=== PATIENT | male | born 1990 | race Two or more races ===

== ENCOUNTER 2020-10-30 14:10 | Emergency (ER) | payer OTHER ==
[~2020-10-30] VITALS: Ht 177.8 cm; Wt 83.9 kg
[2020-10-30] MEDS ORDERED: ACETAMINOPHEN 325 MG TAB PO ONE (14:45)
[2020-10-30 15:14] LABS: Basophils # (auto) 0.1 10 ^3/uL (0-0.2); Basophils % (auto) 0.5 % (0.0-2.0); Eosinophils # (auto) 0.4 10 ^3/uL (0-0.8); Eosinophils % (auto) 2.5 % (0.0-7.0); Hematocrit 49.1 % (41.0-53.0); Hemoglobin 17.2 g/dL (13.5-17.5); Lymphocytes # (auto) 1.3 10 ^3/uL (0.4-5.4); Lymphocytes % (auto) 7.8 % (10.0-50.0); Mean Corpuscular Hemoglobin 32.2 pg (28.0-32.0); Mean Corpuscular Volume 91.8 fL (80.0-100.0); Monocytes # (auto) 1.2 10 ^3/uL (0-1.3); Monocytes % (auto) 7.7 % (0.0-12.0); Neutrophils # (auto) 13.2 10 ^3/uL (1.6-8.6); Neutrophils % (auto) 81.5 % (37.0-80.0); Nucleated Red Blood Cells % 0.3 %; Red Blood Cells 5.35 10^6/uL (4.5-5.90); White Blood Cell 16.1 10^3/uL (4.4-10.8)
[2020-10-30 15:42] LABS: Albumin 3.5 g/dL (3.4-5.0); Calcium 8.7 mg/dL (8.5-10.1); Potassium 3.6 mmol/L (3.5-5.1)
[2020-10-30 15:45] LABS: Lactic Acid w/Reflex 3.4 mmol/L (0.4-2.0)
[2020-10-30 15:46] LABS: BUN/Creatinine Ratio 5.1; Total Protein 7.9 g/dL (6.4-8.2)
[2020-10-30 16:34] VITALS: BP 125/75
== END 2020-10-30 17:58 | disposition home or self-care (01) ==
LOC: ER 14:10
DX: J45.901 Unspecified asthma with (acute) exacerbation (principal); J02.9 Acute pharyngitis, unspecified; R73.9 Hyperglycemia, unspecified; R00.0 Tachycardia, unspecified; F17.210 Nicotine dependence, cigarettes, uncomplicated; Z20.822 Contact with and (suspected) exposure to COVID-19
CPT/HCPCS: 36415; 71045; 80053; 83605; 85025; 87040; 87070; 87426; 87880

== ENCOUNTER 2021-01-04 21:04 | Emergency (ER) | payer SELFPAY ==
[~2021-01-04] VITALS: Ht 177.8 cm; Wt 83.9 kg
[2021-01-05 00:19] VITALS: BP 126/89
== END 2021-01-05 01:21 | disposition home or self-care (01) ==
LOC: ER 21:10
DX: S02.40FA Zygomatic fracture, left side, initial encounter for closed fracture (principal); S02.85XA Fracture of orbit, unspecified, initial encounter for closed fracture; S02.19XA Other fracture of base of skull, initial encounter for closed fracture; S02.40CA Maxillary fracture, right side, initial encounter for closed fracture; S02.2XXA Fracture of nasal bones, initial encounter for closed fracture; J01.80 Other acute sinusitis; J45.909 Unspecified asthma, uncomplicated; F17.210 Nicotine dependence, cigarettes, uncomplicated; V49.49XA Driver injured in collision with other motor vehicles in traffic accident, initial encounter; Y93.89 Activity, other specified; Y92.488 Other paved roadways as the place of occurrence of the external cause; Y99.8 Other external cause status
CPT/HCPCS: 70486

== ENCOUNTER 2025-04-29 09:54 | Emergency (ER) | payer SELFPAY ==
[~2025-04-29] VITALS: Ht 177.8 cm; Wt 86.4 kg
[2025-04-29 10:03] VITALS: BP 137/97; PULSE 85; RESP 15; TEMP 96.1; O2SAT 98
--- NOTE | 2025-04-29 10:35 | ED.PDOC ---
GI ASSESSMENT HPI Comments A 34 YEAR OLD MALE PRESENTS TO THE ED WITH COMPLAINT OF PELVIC PAIN . PT STATES HE HAS HISTORY OF INGUINAL HERNIA BILATERALLY. PT STATES HE HAD SURGERY AT [facility] BUT STATES THE INGUINAL HERNIA REAPPEARED A FEW MONTHS AGO AND STATES HE WAS TOLD [facility] WOULD NOT OPERATE AGAIN UNTIL SYMPTOMS BECAME PROGRESSIVELY WORSE. PT STATES LAST SUNDAY, 5 DAYS PRIOR, HE STARTED AGAIN TO HAVE LOWER PELVIC PAIN AND CAME TODAY DUE TO EXACERBATION OF PAIN. PT STATES HE IS CURRENTLY HAVING R INGUINAL HERNIA PAIN. 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 PATIENT DENIES FEVER, CHILLS, SHORTNESS OF BREATH, CHEST PAIN, ABDOMINAL PAIN, NAUSEA, VOMITING, HEADACHE, OR OTHER COMPLAINTS. NO OTHER SYMPTOMS OR MODIFYING FACTORS AT THIS TIME. PATIENT IS ALERT, ORIENTED X 4, AND HAS STEADY GAIT. Chief Complaint: Pelvic Pain Time Seen by MD: 10:32 Reviewed Notes: Nurses Notes, Medications, Allergies Allergies: Coded Allergies: NO KNOWN ALLERGIES (Unverified , 10/30/20) Information Source: Patient Mode of Arrival: Ambulatory Brought in by: self Timing: Days Duration: Since onset Prehospital treatment: None Quality: Aching, Colicky Vomitus: None Stool: Tarry Severity: Moderate Recent: None Recent Hx of: None Pain Location: Other (GROIN REGIONS ) Associated sign and symptoms: Abdominal Pain Past Medical History PAST MEDICAL HISTORY: Asthma Past Medical History (Other): INGUINAL HERNIAS Surgical History: Denies all surgeries Surgical History (Other): RIGHT INGUINAL HERNIA Family History Family History: Reviewed,noncontributory to illness Social History Smoker: Cigarettes Alcohol: Occasionally Drugs: Denies Drug Use Lives In: Home Constitutional: denies: chills, diaphoresis, fatigue, fever, malaise, sweats, weakness, others EENTM: denies: blurred vision, double vision, ear bleeding, ear discharge, ear drainage, ear pain, ear ringing, eye pain, eye redness, hearing loss, mouth pain, mouth swelling, nasal discharge, nose bleeding, nose congestion, nose pain, photophobia, tearing, throat pain, throat swelling, voice changes, others Respiratory: denies: cough, hemoptysis, orthopnea, SOB at rest, shortness of breath, SOB with excertion, stridor, wheezing, others Cardiovascular: denies: chest pain, dizzy spells, diaphoresis, Dyspnea on exertion, edema, irregular heart beat, left arm pain, lightheadedness, palpitati ons, PND, syncope, others Gastrointestinal: reports: others (pelvic pain); denies: abdomen distended, abdominal pain, blood streaked bowels, constipated, diarrhea, dysphagia, difficulty swallowing, hematemesis, melena, nausea, poor appetite, poor fluid intake, rectal bleeding, rectal pain, vomiting Genitourinary: reports: pain (BILATERAL INGUINAL REGIONS ); denies: burning, dysuria, flank pain, frequency, hematuria, incontinence, penile discharge, penile sore, testicle pain, testicle swelling, urgency, others Neurological: denies: dizziness, fainting, headache, left sided numbness, left sided weakness, numbness, paresthesia, pre-existing deficit, right sided numbness, right sided weakness, seizure, speech problems, tingling, tremors, weakness, others Musculoskeletal: denies: back pain, gout, joint pain, joint swelling, muscle pain, muscle stiffness, neck pain, others Integumetry: denies: bruises, change in color, change in hair/nails, dryness, laceration, lesions, lumps, rash, wounds, others Allergic/Immunocompromised: denies: Difficulty Healing, Frequent Infections, Hives, Itching, others Hematologic/Lymphatic: denies: anemia, blood clots, easy bleeding, easy bruising, swollen glands, others Endocrine: denies: excessive hunger, excessive sweating, excessive thirst, excessive urination, flushing, intolerance to cold, intolerance to heat, unexplained weight gain, unexplained weight loss, others Psychiatric: denies: anxiety, bipolar disorder, depression, hopeless, panic disorder, schizophrenia, sleepless, suicidal, others All Other Systems: Reviewed and Negative Physical Exam General Appearance: No Apparent Distress, Normal HEENT: Normal ENT Inspection, PERRL/EOMI, Pharynx Normal, TMs Normal Neck: Full Range of Motion, Non-Tender, Normal, Normal Inspection Respiratory: Chest Non-Tender, Lungs Clear, No Accessory Muscle Use, No Respiratory Distress, Normal Breath Sounds Cardiovascular: No Edema, No JVD, No Murmur, No Gallop, Normal Peripheral Pulses, Regular Rate/Rhythm Breast Exam: Deferred Gastrointestinal: Hernia (BILATERAL INGUINAL HERNIA REGION, REDUCABLE, NO STRANGULATED. ), No Organomegaly, No Pulsatile Mass, Normal Bowel Sounds, Soft, Tenderness (BILATERAL INGUINAL REGION WITH REDUCABLE HERNIAS. ) Genitalia: Deferred Pelvic: Deferred Rectal: Deferred Extremities: No calf tenderness, Normal capillary refill, Normal inspection, Normal range of motion, Non-tender, No pedal edema Musculoskeletal : Apperance: Normal Neurologic: Alert, service person II-XII nml as Tested, No Motor Deficits, Normal Affect, Normal Mood, No Sensory Deficits Cerebellar Function: Normal Reflexes: Normal Skin: Dry, Normal Color, Warm Peripheral Pulses: 2+ carotid (R), 2+ carotid (L) Lymphatic: No Adenopathy Was a procedure done? Was a procedure done?: No GI differential Dx Differential Diagnosis: Appendicitis, Constipation, Hernia, UTI, Urolithiasis Other Differential Diagnosis inguinal hernia, incarcerated hernia, X-Ray, Labs, Meds, VS Vital Signs Date Time Temp Pulse Resp B/P (MAP) Pulse Ox O2 Delivery O2 Flow Rate FiO2 04/29/25 10:03 96.1 85 15 137/97 98 96.1 PATIENT: OPAL ALFORDT: [id number]: [id number] : 1990 LOC: ER ROOM / BED: / AGE / SEX: 34 / M ADM STATUS: REG ER SERVICE [id number] ORDERING PHYSICIAN: YENNIFER SCHMITZ PROCEDURE(s): ABPL - CT AB PEL WO CON-NO ORAL OR IV REASON: bilateral injuinal hernia x one year. ORDER NUMBER(s): [id number], ACCESSION NUMBER(s): [id number] EXAM: CT CT AB PEL WO CON-NO ORAL OR IV HISTORY: bilateral injuinal hernia x one year. Comparison Study: None Exam Date: 04/29/2025 10:28 AM Radiation Dose Information: CT Dose: CTDI volume is 8.47 mGy. Dose-length product is 449.01 mGy*cm Technique: Multidetector CT of the abdomen and pelvis was performed. Imaging was performed without IV contrast. Axial, coronal and sagittal multiplanar reformats were obtained from the axial data set by the technologist. Findings: Lack of intravenous contrast compromises evaluation of perfusion and for isodense lesions. Lower chest: Clear. Liver: Unremarkable Biliary system: Unremarkable Spleen: Unremarkable Pancreas: Unremarkable. Adrenals: Unremarkable. Kidneys and ureters: No hydronephrosis Bowel: No obstruction. Scattered colonic diverticula. Normal appendix. Bladder: Unremarkable Reproductive organs: No abnormal mass. Lymph nodes: Unremarkable. Peritoneum: Unremarkable Vessels: Patency not evaluated on this noncontrast study. Bones and soft tissue: No aggressive osseous lesion. small fat containing left inguinal hernia. IMPRESSION: No acute CT findings in the abdomen and pelvis. Small fat containing left inguinal hernia. ATED BY: LANDON AGUILAR MD DICTATED DATE/TIME: 04/29/251101 SIGNED BY: LANDON AGUILAR MD SIGNED DATE/TIME: 04/29/251101 CC: X-Ray, Labs, Meds, VS Comment COURSE: EXTERNAL MEDICAL RECORDS REVIEWED: [NONE] INDEPENDENT HISTORIANS: [NONE] SOCIAL DETERMINANTS OF HEALTH: [NONE] LABS ORDERED: NONE REVIEWED AND INTERPRETED RESULTS: NONE IMAGING ORDERED: CT ABDOMEN PELVIC NON-CON TREATMENTS ORDERED: PT DECLINED PAIN MEDICATION. PROCEDURES PERFORMED: NONE CRITICAL CARE TIME: NONE I HAVE DISCUSSED THE PATIENT WITH THE ATTENDING PHYSICIAN DR MARTINEZ. AND HE AGREES WITH THE PATIENT'S PLAN OF CARE AND DISPOSITION. BASED ON HISTORY OF PRESENT ILLNESS, AND PHYSICAL EXAM, PATIENT WILL BE DISCHARGED HOME. SHARED DECISION MAKING: DISCUSSED WITH PATIENT THAT THEIR WORKUP WAS NORMAL. PATIENT INSTRUCTED TO FOLLOW UP WITH PRIMARY CARE PROVIDER IN 1-2 DAYS FOR RE- EVALUATION OF SYMPTOMS. PATIENT VERBALIZES UNDERSTANDING TO RETURN TO ED FOR NEW OR WORSENING SYMPTOMS OR IF FOLLOW UP WITH PCP CANNOT BE OBTAINED. PATIENT FEELS COMFORTABLE GOING HOME AT THIS TIME. ALL QUESTIONS ADDRESSED AT TIME OF DISCHARGE. Time of 1ST Reevaluation: 11:05 Reevaluation 1ST: Improved Patient Education/Counseling: Diagnosis, Treatment, Need For Follow Up Family Education/Counseling: Diagnosis, Treatment, No Family Present Medical Screening: No EMC Exist At This Time SEPSIS Sepsis Screen Date sepsis recognized/suspect: Apr 29, 2025 Time Sepsis recognized/suspect: 1004 Recent Procedure: No On Antibiotic Therapy: No Respiratory Rate >20: No Heart Rate >90: No Temp<36 C (96.8 F) or >38.3 C: No SBP <90 or MAP <65 mmHG: No New Acute Mental Status Change: No Is the patient on CPAP, BIPAP,: No Physician Orders Ct Ab Pel Wo Con-No Oral Or Iv (04/29/25 10:21) Vital Signs Date Time Temp Pulse Resp B/P (MAP) Pulse Ox O2 Delivery O2 Flow Rate FiO2 04/29/25 10:03 96.1 85 15 137/97 98 96.1 Departure 1 Departure Time of Disposition: 11:50 Impression: Primary Impression: Left inguinal hernia Disposition: HOME / SELF CARE / HOMELESS Condition: Stable Additional Instructions: INSTRUCTIONS: FOLLOW-UP WITH PCP IN 1 TO 2 DAYS. TAKE MEDICATIONS PRESCRIBED. RETURN TO ED FOR ANY NEW OR WORSENING SYMPTOMS. Discharged With: Self Critical Care Note Critical Care Time?: No Stability Stability form required: No Heart Score Heart Score: Heart Score Response (Comments) Value History N/A 0 EKG N/A 0 Age N/A 0 Risk Factors N/A 0 Troponin N/A 0 Total 0 I personally scribed for YENNIFER SCHMITZ ([email or web address]) on 04/29/25 at 10:35. Electronically submitted by Remedios Du ([email or web address]). I personally scribed for YENNIFER SCHMITZ ([email or web address]) on 04/29/25 at 10:37. Electronically submitted by Remedios Du ([email or web address]). YENNIFER SCHMITZ Apr 29, 2025 10:35
--- NOTE | 2025-04-29 11:04 | DVH ---
EXAM: CT CT AB PEL WO CON-NO ORAL OR IV HISTORY: bilateral injuinal hernia x one year. Comparison Study: None Exam Date: 04/29/2025 10:28 AM Radiation Dose Information: CT Dose: CTDI volume is 8.47 mGy. Dose-length product is 449.01 mGy*cm Technique: Multidetector CT of the abdomen and pelvis was performed. Imaging was performed without IV contrast. Axial, coronal and sagittal multiplanar reformats were obtained from the axial data set by the technologist. Findings: Lack of intravenous contrast compromises evaluation of perfusion and for isodense lesions. Lower chest: Clear. Liver: Unremarkable Biliary system: Unremarkable Spleen: Unremarkable Pancreas: Unremarkable. Adrenals: Unremarkable. Kidneys and ureters: No hydronephrosis Bowel: No obstruction. Scattered colonic diverticula. Normal appendix. Bladder: Unremarkable Reproductive organs: No abnormal mass. Lymph nodes: Unremarkable. Peritoneum: Unremarkable Vessels: Patency not evaluated on this noncontrast study. Bones and soft tissue: No aggressive osseous lesion. small fat containing left inguinal hernia. IMPRESSION: No acute CT findings in the abdomen and pelvis. Small fat containing left inguinal hernia.
== END 2025-04-29 11:43 | disposition home or self-care (01) ==
LOC: ER 09:54
DX: K40.90 Unilateral inguinal hernia, without obstruction or gangrene, not specified as recurrent (principal); F17.210 Nicotine dependence, cigarettes, uncomplicated; F10.90 Alcohol use, unspecified, uncomplicated; J45.909 Unspecified asthma, uncomplicated
CPT/HCPCS: 74176